=== PATIENT | male | born 1975 | race Caucasian/White ===

== ENCOUNTER 2017-09-25 14:56 | Emergency (ER) | payer MEDICAID ==
--- NOTE | 2017-09-25 15:32 | ED Physician Documentation ---
PD HPI ABD PAIN - Stated complaint Stated Complaint: ABD PX/BLOOD IN STOOL - Chief complaint Chief Complaint: Abd Pain - History obtained from History obtained from: Patient - History of Present Illness Timing - onset: Enter time (399), Today Timing - duration: Hours Timing - details: Abrupt onset, Still present Quality: Sharp, Pain Location: LLQ Radiation: Lower back Improved by: Laying still Worsened by: Moving, Position, Palpation Associated symptoms: Constipation, Hematochezia. No: Nausea, Vomiting Similar symptoms before: Has not had sx before Recently seen: Not recently seen - Additional information Additional information: 42-year-old male has been having some problems constipation for the past 6 months. At about 4:00 in the morning he developed acute abdominal pain but was able to get back to sleep. At 6:00 in the morning he got up had a bowel movement and noted blood in the stool. Review of Systems Constitutional: denies: Fever, Chills, Myalgias, Fatigue Eyes: denies: Decreased vision Ears: denies: Ear pain Nose: denies: Congestion Throat: denies: Oral lesions / sores, Sore throat Cardiac: denies: Chest pain / pressure, Palpitations Respiratory: denies: Dyspnea, Cough GI: reports: Abdominal Pain, Constipation, Bloody / black stool. denies: Nausea , Vomiting : denies: Dysuria, Frequency Skin: denies: Rash Musculoskeletal: denies: Neck pain, Back pain, Extremity pain Neurologic: denies: Generalized weakness, Focal weakness, Numbness PD PAST MEDICAL HISTORY - Present Medications Home Medications: Ambulatory Orders Medication Instructions Recorded Confirmed Ciprofloxacin HCl [Cipro] 500 mg PO BID #10 tablet 09/25/17 Zolpidem [Ambien] 10 mg PO HS 09/25/17 09/25/17 - Allergies Allergies/Adverse Reactions: Allergies Allergy/AdvReac Type Severity Reaction Status Date / Time No Known Drug Allergies Allergy Verified 09/25/17 15:14 PD ED PE NORMAL - Vitals Vital signs reviewed: Yes (normal ) - General General: No acute distress, Well developed/nourished - HEENT HEENT: Atraumatic, PERRL, EOMI - Neck Neck: Supple, no meningeal sign, No bony TTP - Cardiac Cardiac: RRR, No murmur - Respiratory Respiratory: No respiratory distress, Clear bilaterally - Abdomen Abdomen: Soft, Other (There is left lower quadrant tenderness to palpation ) - Back Back: No CVA TTP, No spinal TTP - Derm Derm: Normal color, Warm and dry, No rash - Extremities Extremities: No deformity, No tenderness to palpate, No edema - Neuro Neuro: Alert and oriented X 3, No motor deficit, No sensory deficit, Normal speech Eye Opening: Spontaneous Motor: Obeys Commands Verbal: Oriented GCS Score: 15 - Psych Psych: Normal mood, Normal affect Results - Vitals Vitals: Vital Signs - 24 hr 09/25/17 09/25/17 15:10 16:07 Temperature 36 C L Heart Rate 74 86 Respiratory 16 16 Rate Blood Pressure 109/72 121/74 O2 Saturation 96 98 Oxygen O2 Source Room air - Labs Labs: Laboratory Tests 09/25/17 09/25/17 15:39 15:39 WBC 6.2 RBC 4.94 Hgb 15.2 Hct 44.6 MCV 90.3 MCH 30.7 MCHC 34.0 RDW 12.9 Plt Count 226 MPV 8.5 Neut # 4.3 Lymph # 1.4 L [place] # 0.4 Eos # 0.0 Baso # 0.1 Absolute Nucleated RBC 0.00 Nucleated RBC % 0.0 Sodium 140 Potassium 3.9 Chloride 103 Carbon Dioxide 25 Anion Gap 12.0 BUN 15 Creatinine 0.8 Estimated GFR (MDRD) 107 Glucose 84 Calcium 9.8 Total Bilirubin 2.4 H AST 22 ALT 22 Alkaline Phosphatase 49 Total Protein 7.8 Albumin 4.6 Globulin 3.2 Albumin/Globulin Ratio 1.4 Lipase 23 - Rads (name of study) CT ab/pel with Radiology: Prelim report reviewed (Impression: Descending colon wall thickening suspicious for an enteritis, infectious versus noninfectious.), EMP read indepedently, See rad report PD MEDICAL DECISION MAKING - ED course Complexity details: reviewed results, re-evaluated patient, considered differential, d/w patient ED course: 42-year-old male visiting from [place] is had an episode of abdominal pain and bloody diarrhea today. He has not had any further output while he has been here in the emergency department. On his CT scan he has evidence of local enteritis and with the acute onset of this and the bleeding he will empircally treated and he is given a dose of cipro here in the ED. He is instructed to return for uncontrolled pain, excessive bleeding or faintness. Departure - Departure Disposition: 01 Home, Self Care Clinical Impression: Gastroenteritis Condition: Stable Instructions: ED Gastroenteritis Bacterial Follow-Up: Eliu Radford PA-C [Primary Care Provider] - Prescriptions: Ciprofloxacin HCl [Cipro] 500 mg PO BID #10 tablet
[2017-09-25 15:48] LABS: BASOPHILS # (AUTO) 0.1 10^3/uL (0.0-0.1); BASOPHILS % (AUTO) 1.7 %; EOSINOPHILS % (AUTO) 0.3 %; HCT - HEMATOCRIT 44.6 % (42.0-52.0); HGB - HEMOGLOBIN 15.2 g/dL (14.0-18.0); LYMPHOCYTES # (AUTO) 1.4 10^3/uL (1.5-3.5); LYMPHOCYTES % (AUTO) 22.7 %; MEAN CORPUSCULAR HEMOGLOBIN 30.7 pg (27.0-31.0); MEAN CORPUSCULAR VOLUME 90.3 fL (80.0-94.0); MEAN PLATELET VOLUME 8.5 fL (7.4-11.4); MONOCYTES # (AUTO) 0.4 10^3/uL (0.0-1.0); MONOCYTES % (AUTO) 5.9 %; NEUTROPHILS # (AUTO) 4.3 10^3/uL (1.5-6.6); NEUTROPHILS % (AUTO) 69.4 %; RED BLOOD COUNT 4.94 10^6/uL (4.70-6.10); RED CELL DISTRIBUTION WIDTH 12.9 % (12.0-15.0); UNCORRECTED WHITE BLOOD COUNT 6.2 x10^3/uL; WHITE BLOOD COUNT 6.2 x10^3/uL (4.8-10.8)
[2017-09-25 15:56] LABS: ALBUMIN/GLOBULIN RATIO 1.4 (1.0-2.2); BILIRUBIN,TOTAL 2.4 mg/dL (0.2-1.0); CALCIUM 9.8 mg/dL (8.5-10.3); CREATININE 0.8 mg/dL (0.6-1.2); POTASSIUM 3.9 mmol/L (3.5-5.0); TOTAL PROTEIN 7.8 g/dL (6.7-8.2)
[2017-09-25] MEDS ORDERED: IOPAMIDOL-300 100 ML VIAL ONE (16:09)
[2017-09-25 16:18] VITALS: BP 121/74
[2017-09-25] MEDS ORDERED: IOPAMIDOL-300 100 ML VIAL IVP ONE (16:30)
--- NOTE | 2017-09-25 16:37 | CT Preliminary Report ---
Exam: CT ABDOMEN/PELVIS W/ IMPRESSION: Descending colon wall thickening suspicious for an enteritis, infectious versus noninfect ious. [facility] SITE ID: [id number]
--- NOTE | 2017-09-25 16:40 | CT Report ---
EXAM: CT ABDOMEN AND PELVIS EXAM DATE: 09/25/2017 04:19 PM. CLINICAL HISTORY: LLQ pain blood in stool. COMPARISONS: None. TECHNIQUE: Routine helical CT imaging was performed through the abdomen and pelvis. IV contrast: 100 ML ISOVUE 300. Enteric contrast: No. Reconstructions: Coronal and sagittal. In accordance with CT protocol optimization, one or more of the following dose reduction techniques w ere utilized for this exam: automated exposure control, adjustment of mA and/or KV based on patient s ize, or use of iterative reconstructive technique. FINDINGS: Lung Bases: Unremarkable. Liver: Normal. No masses. Gallbladder/Bile Ducts: Unremarkable. Spleen: Normal. Pancreas: Normal. Adrenal Glands: Normal. Kidneys: Normal. No masses or hydronephrosis. Peritoneal Cavity/Bowel: Subtle diffuse wall thickening of the distal descending colon measuring abou t 6-7 mm in thickness with minimal infiltration of surrounding fat. No definite diverticula. No free fluid, free air, or lymphadenopathy. The appendix is well visualized and normal. Pelvic Organs: Tiny lipoma of urinary bladder fundus. Otherwise unremarkable. Vasculature: No aneurysms or other significant abnormality. Bones: No significant abnormality. Other: None. IMPRESSION: Descending colon wall thickening suspicious for an enteritis, infectious versus noninfect ious. [facility] Referring Provider Line: [phone] SITE ID: [id number]
[2017-09-25] MEDS ORDERED: CIPROFLOXACIN 250 MG TABLET PO STA (17:13)
[2017-09-25] MEDS ORDERED: CIPROFLOXACIN 250 MG TABLET PO ONE (17:29)
== END 2017-09-25 17:25 | disposition home or self-care (01) ==
LOC: ED 14:56
DX: K52.9 Noninfective gastroenteritis and colitis, unspecified (principal)
CPT/HCPCS: 36415; 74177; 80053; 83690; 85025; 99283; A9270; Q9967